=== PATIENT | female | born 1980 | race Caucasian/White ===

== ENCOUNTER 2019-11-20 11:21 | Observation (INO) | payer SELFPAY ==
[2019-11-20] VITALS (8 sets, daily range): BP systolic 85–138; BP diastolic 64–98; PULSE 63–81; RESP 12–20; TEMP 36.4–36.8; O2SAT 100; BMI 21.9
--- NOTE | 2019-11-20 12:23 | ECG_ITS ---
Measurements Intervals [place] Rate: 62 P: 74 TN: 173 QRS: 60 QRSD: 97 T: 53 QT: 438 QTc: 447 Interpretive Statements SINUS RHYTHM WITH SINUS ARRHYTHMIA BASELINE ARTIFACT- I, II, III, AVR, AVL, AVF, V1 NORMAL ECG Electronically Signed On 11-20-2019 14:46:58 CDT by Zbigniew Shah D.O.
--- NOTE | 2019-11-20 13:04 | ED.OVERDOSE ---
HPI - Overdose General Chief Complaint: Overdose Stated Complaint: took 20 zoloft Time Seen by Provider: 11/20/19 12:18 Source: patient and family Mode of arrival: ambulatory Limitations: no limitations History of Present Illness HPI Narrative: 39-year-old female Presents following what she says was a accidental ingestion of all of her remaining Zoloft tablets, numbering 20 100 mg tabs, this morning It is a unusual story involving having new daily pill dispensers which are supposed to hold her vitamin pills of which it sounds like she takes about 10 a day, and then somehow she grabbed the old pill meredith and took everything that was in it, which was a months worth of Zoloft She says, not a suicidal ingestion, and no other coingestions The Zoloft is prescribed by her PCP Dr. Pineda Intent: other Related Data Allergies Allergy/AdvReac Type Severity Reaction Status Date / Time erythromycin base Allergy Severe Nausea and Verified 08/30/14 03:44 Vomiting Penicillins Allergy Intermediate HIVES Verified 08/30/14 03:44 Sulfa (Sulfonamide Allergy Mild [place] Verified 08/30/14 03:44 Antibiotics) A CHILD Review of Systems Review of Systems: All systems reviewed & are unremarkable except as noted in HPI and below Constitutional: Constitutional: Denies fatigue, Denies fever(s) and Denies headache(s) Comments: drowsy, wt loss Eyes: Eyes: Denies change in vision ENT: Denies hoarseness, Denies nasal congestion and Denies sore throat Cardiovascular: Cardiovascular: Denies chest pain, Denies leg edema, Denies palpitations and Denies dyspnea Respiratory: Respiratory: Denies cough, Denies dyspnea and Denies wheezing Gastrointestinal: Gastrointestinal: Denies nausea and Denies vomiting Musculoskeletal: Musculoskeletal: Denies deformity, Denies joint swelling and Denies numbness Integumentary/Breasts: Skin/Breast: Denies rash, Denies unusual bruising and Denies wounds Neurologic: Denies focal weakness and Denies numbness Psychiatric: Psychiatric: Reports no additional psychiatric complaints and Reports abnormal sleep pattern Endocrine: Endocrine: Denies fatigue and Denies palpitations Hematologic/Lymphatic: Hematologic/Lymphatic: Denies easy bleeding and Denies easy bruising Allergic/Immunologic: Allergic/Immunologic: Denies wheezing Exam Const: General: healthy appearing, no acute distress and well developed Nutritional Appearance: well nourished Orientation/consciousness: patient oriented x3 (alert) and Other orientation findings (Alert) Limitations: no limitations HENMT: Head: normocephalic and atraumatic Ears: external ears normal General nose exam: no epistaxis Face and sinus: face symmetric Mouth: Yes lip normal and Yes moist mucous membranes Throat: other (No exudate, no erythema) Eyes: Conjunctivae: conjunctivae normal Sclera: sclerae normal EOM: EOMs intact bilaterally Neck: Neck: full ROM and supple Chest: Chest palpation & inspection: no tenderness Resp: Effort & Inspection: normal respiratory effort Auscultation: clear to auscultation bilaterally, no rales, no rhonchi, no wheezes and other (breath sounds equal) Cardio: Rate: regular rate Rhythm: regular rhythm Heart sounds: no gallops and no murmurs GI: Inspection: non-distended GI Palp: Yes Soft to palpation Auscultation: other (bowel sounds present) Skin: General skin exam: normal color and no rashes or lesions noted Neuro: General: patient oriented x3 (alert), moves all extremities and no focal motor deficits Extrem: General: normal to inspection, full ROM and no pedal edema Course Vital Signs Vital signs: Vital Signs Temperature 36.8 C 11/20/19 12:03 Pulse Rate 63 11/20/19 12:03 Respiratory Rate 18 11/20/19 12:03 Blood Pressure 131/79 11/20/19 12:03 Pulse Oximetry 100 11/20/19 12:03 Temperature 36.8 C 11/20/19 12:03 Pulse Rate 81 11/20/19 13:25 Respiratory Rate 20 11/20/19 13:25 Blood Pre
[2019-11-20 13:36] LABS: Basophils Absolute Auto 0.1 K/mm3 (0.0-0.1); Basophils Percent Auto 0.7 % (0.2-1.2); Eosinophils Percent Auto 0.3 % (0-4.4); Hematocrit 45.2 % (37.0-47.0); Hemoglobin 15.9 g/dL (12.0-15.0); Immature Granulocyte Absolute 0.05 K/mm3 (0.00-0.031); Immature Granulocyte Percent A 0.4 % (0-0.5); Lymphocytes Absolute Auto 1.13 K/mm3 (0.9-3.2); Lymphocytes Percent Auto 8.9 % (18.3-44.2); Mean Corpuscular HGB Conc 35.2 g/dl (32-36); Mean Corpuscular Hemoglobin 30.8 pg (26-34); Mean Corpuscular Volume 87.6 fl (80-100); Mean Platelet Volume 11.9 fl (7.4-10.4); Monocytes Absolute Auto 0.4 K/mm3 (0.1-0.6); Monocytes Percent Auto 2.8 % (2.6-8.5); Neutrophils Percent Auto 86.9 % (45.5-73.1); Platelet Count Result 262 k/mm3 (150-375); Red Blood Count 5.16 M/mm3 (4.2-5.4); Red Cell Distribution Width 12.4 % (11.5-14.5); White Blood Count 12.7 K/mm3 (4.5-10.0)
[2019-11-20 13:55] LABS: Acetaminophen < 10 ug/mL (10-30); Ethanol < 10 mg/dL (<10); Salicylate < 1.0 mg/dL (2-20)
[2019-11-20 13:56] LABS: Alanine Aminotransferase 15 U/L (4-35); Alkaline Phosphatase 115 U/L (38-126); Anion Gap 17 mmol/L (8-16); Aspartate Amino Transferase 26 U/L (14-36); Bilirubin,Total 1.1 mg/dL (0.2-1.3); Blood Urea Nitrogen 13 mg/dL (7-17); Calcium 10.2 mg/dL (8.4-10.2); Carbon Dioxide 21 mmol/L (22-30); Chloride 103 mmol/L (98-107); Estimated CRCL calculation 71 ml/min; Estimated Glomerular Filt Rate > 60; Glucose 167 mg/dL (65-105); Potassium 4.2 mmol/L (3.4-5.0); Sodium 141 mmol/L (137-145)
--- NOTE | 2019-11-20 14:03 | PC.NURSE ---
patient taking off blood pressure cuff and tele leads saying they are uncomfortable. attempted to explain the need to monitor but patient is refusing to leave on. patients is verbally aggressive with staff writing down names of staff and each interaction. became hostile when told that no pillows are avaiable at this time in er. patients states his assistant county attorney will hear about that
[2019-11-20 14:20] LABS: Add Urine Microscopic? YES; Appearance Urine Clear (Clear); Bacteria Urine Trace /hpf; Bilirubin Urine Negative (Negative); Blood Urine Negative (Negative); Color Urine Yellow (Yellow); Glucose Urine UA Negative (Negative); Ketones Urine 2+ mg/dL (Negative); Leukocyte Esterase Ur Negative LEU/UL (Negative); Mucus Urine Few /lpf; Nitrate Urine Negative (Negative); Protein Urine 1+ mg/dL (Negative); RBC Urine 0-2 /hpf (0-2); Specific Grav Ur 1.026 (1.001-1.035); Squamous Epithelial Cell Urine Few /hpf (Few); Urobilinogen Urine Negative mg/dL (<2.0); WBC Urine 0-3 /hpf
--- NOTE | 2019-11-20 14:25 | PC.NURSE ---
[id number] POISON CONTROL CONTACTED @[phone] SPOKE WITH ARNEL STATED WILL SEND INFO ON [facility] OD.
[2019-11-20 14:27] LABS: Amphetamine Screen Urine Negative (Negative); Barbiturate Screen Urine Negative (Negative); Benzodiazepines Screen Urine Negative (Negative); Cannabinoid Screen Urine Positive (Negative); Cocaine Screen Urine Negative (Negative); Methadone Screen Urine Negative (Negative); Opiate Screen Urine Negative (Negative); Phencyclidine Screen Urine Negative (Negative)
--- NOTE | 2019-11-20 15:00 | PM.IMHP ---
H&P: HPI History of Present Illness Date/Time: 11/20/19 15:00 Chief complaint: Antidepressant overdose Narrative: Анна Greenwood is a 39-year-old female with depression and anxiety who presented to the emergency department earlier today for evaluation after a reported unintentional ingestion of 20, 100 mg tablets of Zoloft this morning. She bought a new pill dispenser and was sorting her pills this morning (she takes 13 different vitamins each day in addition to Zoloft) when she accidently took the pills remaining in her old dispenser. After reportedly taking 20, 100 mg tablets of Zoloft, she induced vomiting and came to the ED for evaluation. At the time of my evaluation, she reports feeling anxious about the accidental overdose and being hospitalized. She also feels short of breath and nauseated but is noticeable anxious. She remains adamant that the overdose was accidental and not at all intentional. She also denies harmful and suicidal thoughts and denies previous history of suicide attempt. Review of Systems Review of Systems: Narrative: Twelve systems were reviewed with pertinent positives and negatives as per HPI. No fever, chills, or sweats. She denies recent cold and flu symptoms. No chest pain, pleuritic pain, or palpitations. She reports feeling a bit short of breath but is noticeably anxious. She also mentions some tingling in both of her hands. She continues to have nausea. Except as documented, all other systems were reviewed and are negative. 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 Surgical History Surgical History (Updated 11/20/19 @ 17:14 by Cleo Harvey PA-C) History of bilateral breast reduction surgery History of partial thyroidectomy (~10/10/11) Left thyroidectomy and isthmusectomy for Hurtle cell adenoma. Family History Family History Mother Bipolar 1 disorder Schizophrenia Epilepsia Social History Social History (Updated 11/20/19 @ 17:13 by Cleo Harvey PA-C) Social History: Surrogate decision maker: Zion Greenwood, spouse. Code status: Full code. Smoking status: Never smoker Alcohol intake: never Substance use: current Substance use type: marijuana Additional living arrangements comments: Resides in [place] with her . She has no children. Additional occupation/education comments: Self-employed. Spiritual care concerns: No Meds Home Medications and Allergies Allergies Allergy/AdvReac Type Severity Reaction Status Date / Time erythromycin base Allergy Severe Nausea and Verified 08/30/14 03:44 Vomiting Penicillins Allergy Intermediate HIVES Verified 08/30/14 03:44 Sulfa (Sulfonamide Allergy Mild [place] Verified 08/30/14 03:44 Antibiotics) A CHILD Vital Signs Vital Signs - 24 hr 11/20/19 12:03 11/20/19 12:15 11/20/19 13:25 Temperature 98.2 F Pulse Rate 63 81 Respiratory Rate 18 18 20 Blood Pressure 131/79 138/91 H Pulse Oximetry 100 100 Exam Narrative: Exam Narrative: General: Well-developed female supine in bed. Weight: 52.8 kg. BMI: 22.0. HEENT: Normocephalic, atraumatic. PERRL, EOMI. Sclerae anicteric. Oral mucosa tacky. Lips are dry. Oropharynx clear. Edentulous in the upper jaw. Neck: Supple. Thyroidectomy scar noted. Respiratory: Breathing is shallow and rapid when she is anxious. Lungs are clear to auscultation bilaterally. Cardiovascular: Regular rate and rhythm with S1-S2. No murmur, rub, or gallop. Gastrointestinal: Abdomen is soft, nontender, and nondistended with positive bowel sounds. Skin: Warm and dry. No rash or lesions on limited exam. Extremities: No cyanosis, clubbing, or edema. Radial and pedal pulses intact. Neurological: Alert. Cranial nerves 2-12 are jaylon
[2019-11-20] MEDS: LACTATED RINGERS 1,000 ML 999 ML IV CONT (15:07)
--- NOTE | 2019-11-20 16:00 | PC.NURSE ---
This patient, Анна Greenwood, was admitted to IMU status, and placed in Intensive Care Unit-11. Patient/family oriented to hospital policies and general routines including ID bracelet, bed and alarms, visiting hours, pain management, procedures, bathroom and other care routines, personal items, smoking policy, room service/diet, and visiting hours. Valuables list has been completed. Information on how to activate the Rapid Response Team has been discussed. Patient/Family are encouraged to report perceived risks to care and to ask questions if they do not understand what they are told or what they should do.
[2019-11-20] MEDS: PANTOPRAZOLE 40 MG TABLET PO ×2 (16:44→21:36)
[2019-11-20] MEDS: hydrOXYzine pamoate 25 MG CAPSULE PO ×2 (16:44→21:36)
[2019-11-20] MEDS: LACTATED RINGERS 1,000 ML 125 ML IV CONT (18:29)
--- NOTE | 2019-11-20 22:50 | PC.NURSE ---
Spoke with Radha from [place] poison control for update at 0751 11/20/19. No further recommendations other than monitor for telemetry abnormalities. They will check back in the am.
[2019-11-21] VITALS: BP 120/66; PULSE 73; PULSE 77; RESP 25; TEMP 36.8; O2SAT 98
[2019-11-21 02:00] VITALS: PULSE 86
[2019-11-21] MEDS: LACTATED RINGERS 1,000 ML 125 ML IV CONT (02:32)
[2019-11-21 04:00] VITALS: BP 139/86; PULSE 80; PULSE 93; RESP 23; TEMP 36.6; O2SAT 99
[2019-11-21] MEDS: hydrOXYzine pamoate 25 MG CAPSULE PO (04:54)
[2019-11-21 05:09] LABS: Basophils Percent Auto 0.2 % (0.2-1.2); Hematocrit 39.7 % (37.0-47.0); Hemoglobin 14.1 g/dL (12.0-15.0); Immature Granulocyte Absolute 0.06 K/mm3 (0.00-0.031); Immature Granulocyte Percent A 0.5 % (0-0.5); Lymphocytes Absolute Auto 1.33 K/mm3 (0.9-3.2); Lymphocytes Percent Auto 11.3 % (18.3-44.2); Mean Corpuscular HGB Conc 35.5 g/dl (32-36); Mean Corpuscular Hemoglobin 30.5 pg (26-34); Mean Corpuscular Volume 85.9 fl (80-100); Mean Platelet Volume 11.4 fl (7.4-10.4); Monocytes Absolute Auto 0.6 K/mm3 (0.1-0.6); Monocytes Percent Auto 4.9 % (2.6-8.5); Neutrophils Absolute Auto 9.8 K/mm3 (1.3-6.7); Neutrophils Percent Auto 83.1 % (45.5-73.1); Platelet Count Result 270 k/mm3 (150-375); Red Blood Count 4.62 M/mm3 (4.2-5.4); Red Cell Distribution Width 12.3 % (11.5-14.5); White Blood Count 11.7 K/mm3 (4.5-10.0)
[2019-11-21 05:30] LABS: Alanine Aminotransferase 22 U/L (4-35); Albumin Level 4.6 g/dL (3.5-5.1); Alkaline Phosphatase 95 U/L (38-126); Anion Gap 14 mmol/L (8-16); Aspartate Amino Transferase 43 U/L (14-36); Bilirubin,Total 1.2 mg/dL (0.2-1.3); Blood Urea Nitrogen 11 mg/dL (7-17); Calcium 9.4 mg/dL (8.4-10.2); Carbon Dioxide 18 mmol/L (22-30); Chloride 110 mmol/L (98-107); Estimated CRCL calculation 71 ml/min; Estimated Glomerular Filt Rate > 60; Glucose 119 mg/dL (65-105); Magnesium 1.5 mg/dL (1.6-2.3); Potassium 3.5 mmol/L (3.4-5.0); Sodium 142 mmol/L (137-145)
[2019-11-21 05:55] VITALS: PULSE 86
[2019-11-21 08:00] VITALS: BP 120/72; PULSE 84; PULSE 96; RESP 13; TEMP 37; O2SAT 98
[2019-11-21] MEDS: PANTOPRAZOLE 40 MG TABLET PO (09:25)
--- NOTE | 2019-11-21 09:53 | PC.NURSE ---
CLEARED BY POISON CONTROL AT 0950 AM.
[2019-11-21 10:00] VITALS: PULSE 79
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
--- NOTE | 2019-11-21 13:21 | PC.NURSE ---
PATIENT HAS BEEN EVALUATED BY CRISIS AND DR. JACKSON. WAITING ON DISCHARGE ORDERS.
== END 2019-11-21 14:00 | disposition home or self-care (01) ==
LOC: ANHED 14:35 → ANHICU 11-21 13:44
PROVIDERS: Physician Assistant; Admitting Provider Family Medicine; Emergency Provider Emergency Medicine; Visit Provider Internal Medicine
DX: T43.221A Poisoning by selective serotonin reuptake inhibitors, accidental (unintentional), initial encounter (principal); E86.0 Dehydration; F41.8 Other specified anxiety disorders
CPT/HCPCS: 36415; 80053; 80307; 81001; 81025; 83735; 84443; 85025; 93005; 96360; 96361; 99285; A9270; G0378; G0379; J7120

== ENCOUNTER 2021-03-25 15:03 | Outpatient (CLI) | payer BC, SELFPAY ==
--- NOTE | ~2021-03-25 | US_ITS ---
EXAMINATION: US thyroid DATE: 03/25/2021 15:27 INDICATION: Nontoxic single thyroid nodule TECHNIQUE: Multiple ultrasound images of the thyroid were obtained. COMPARISON: 09/19/2011 FINDINGS: The right thyroid lobe measures 5.5 x 2.2 x 1.8 cm. Status post left thyroidectomy with no abnormal n odules or residual thyroid tissue at the left thyroid fossa. 3.0 x 2.5 x 1.4 cm wider than tall mixed solid and cystic nodule with smooth margins and without echogenic foci in the right thyroid lobe whi ch contains a couple 1 cm isoechoic solid nodular components (TI-RADS 2, not suspicious, no FNA recom mended) unchanged likely benign 2 mm shadowing coarse calcification. IMPRESSION: 1. 3.0 cm TI RADS 2 right thyroid nodule which does not meet criteria for either biopsy or follow-up. 2. Status post left thyroidectomy. Reviewed, dictated and finalized at location A. [employer] IMPRESSION: 1. 3.0 cm TI RADS 2 right thyroid nodule which does not meet criteria for eithe r biopsy or follow-up. 2. Status post left thyroidectomy.
== END 2021-03-25 15:04 | disposition home or self-care (01) ==
LOC: ANHIMG 15:07
PROVIDERS: PCP Family Medicine; Visit Provider Family Medicine
DX: E04.1 Nontoxic single thyroid nodule (principal); E89.0 Postprocedural hypothyroidism
CPT/HCPCS: 76536

== ENCOUNTER 2021-11-01 09:18 | Outpatient (CLI) | payer OTHER, SELFPAY ==
--- NOTE | ~2021-11-01 | MM_ITS ---
EXAMINATION: MM screening brandy BI w jose HISTORY: Screening mammogram TECHNIQUE: Craniocaudal and mediolateral oblique 3-D tomosynthesis images were obtained and synthetic 2-D images were generated. CAD analysis was submitted and interpreted. COMPARISON: No prior mammogram is available for comparison at this institution. BREAST PARENCHYMAL COMPOSITION: The breasts are extremely dense, which lowers the sensitivity of mamm ography. FINDINGS: Bilateral breast masses. Bilateral diagnostic mammography and bilateral breast ultrasound examination are recommended. IMPRESSION: 1. Bilateral breast masses 2. Bilateral diagnostic mammography and breast ultrasound examination are recommended BI-RADS Category 0: Incomplete: Needs additional imaging evaluation. Reviewed, dictated and finalized at location A. IMPRESSION: 1. Bilateral breast masses 2. Bilateral diagnostic mammography and breast ultrasound examination are recom mended BI-RADS Category 0: Incomplete: Needs additional imaging evaluation.
== END 2021-11-01 09:19 | disposition home or self-care (01) ==
PROVIDERS: PCP Nurse Practitioner Adult Health; Visit Provider Nurse Practitioner Adult Health
DX: Z12.31 Encounter for screening mammogram for malignant neoplasm of breast (principal); R92.8 Other abnormal and inconclusive findings on diagnostic imaging of breast
CPT/HCPCS: 77063; 77067

== ENCOUNTER 2021-11-15 13:44 | Outpatient (CLI) | payer OTHER, SELFPAY ==
--- NOTE | ~2021-11-15 | MMUS_ITS ---
EXAMINATION: MM diagnostic brandy BI w jose, US breast BI complete HISTORY: Follow-up bilateral breast masses TECHNIQUE: Additional 3-D tomosynthesis images of the breasts were performed and synthetic 2-D images were generated. CAD analysis was submitted and interpreted. High resolution complete bilateral breas t ultrasound was performed. COMPARISON: 11/01/2021 BREAST PARENCHYMAL COMPOSITION: The breasts are extremely dense, which lowers the sensitivity of mamm ography FINDINGS: MAMMOGRAPHIC FINDINGS: Bilateral breast asymmetries are less apparent with spot compression and mediolateral views. There ar e no discrete masses, calcifications or architectural distortion. ULTRASOUND: Complete bilateral US of all 4 quadrants of the breasts and retroareolar region was reviewed. There a re multiple cysts of both breasts. No suspicious masses in either breast to suggest malignancy. There are normal-appearing left axillary lymph nodes IMPRESSION: 1. No evidence for malignancy in either breast. 2. Routine yearly screening mammogram and regular clinical breast examination are recommended. BI-RADS Category 2: Benign finding(s). Reviewed, dictated and finalized at location A. IMPRESSION: 1. No evidence for malignancy in either breast. 2. Routine yearly screening mammogram and regular clinical breast examination a re recommended. BI-RADS Category 2: Benign finding(s).
== END 2021-11-15 13:45 | disposition home or self-care (01) ==
PROVIDERS: PCP Nurse Practitioner Adult Health; Visit Provider Family Medicine
DX: R92.8 Other abnormal and inconclusive findings on diagnostic imaging of breast (principal)
CPT/HCPCS: 76641; 77062; 77066; G0279

== ENCOUNTER 2022-02-24 13:31 | Outpatient (CLI) | payer OTHER, SELFPAY ==
--- NOTE | ~2022-02-24 | US_ITS ---
EXAMINATION: US thyroid DATE: 02/24/2022 14:15 INDICATION: Nontoxic goiter. TECHNIQUE: Multiple ultrasound images of the thyroid were obtained. COMPARISON: Ultrasound 03/25/2021, 09/19/11 FINDINGS: The right thyroid lobe measures 5.2 x 2.8 x 2.1 cm. There are changes of left hemithyroidectomy. In t he right thyroid lobe, there is a 3.8 cm mixed cystic and solid nodule with 11 mm isoechoic solid com ponent. The nodule is wider than tall with smooth margin without echogenic foci (TI-RADS TR2). IMPRESSION: 1. Right thyroid nodule, not suspicious. No follow-up is needed. 2. Left hemithyroidectomy. Reviewed, dictated and finalized at location A. BAGGER
== END 2022-02-24 13:32 | disposition home or self-care (01) ==
PROVIDERS: PCP Nurse Practitioner Adult Health; Visit Provider Nurse Practitioner Adult Health
DX: E04.9 Nontoxic goiter, unspecified (principal); R13.10 Dysphagia, unspecified; Z85.850 Personal history of malignant neoplasm of thyroid; E89.0 Postprocedural hypothyroidism
CPT/HCPCS: 76536

== ENCOUNTER 2023-07-25 14:29 | Outpatient (CLI) | payer OTHER, SELFPAY ==
--- NOTE | ~2023-07-25 | MM_ITS ---
EXAMINATION: MM screening brandy BI w jose HISTORY: Screening TECHNIQUE: Craniocaudal and mediolateral oblique 3-D tomosynthesis images were obtained and synthetic 2-D images were generated. CAD analysis was submitted and interpreted. COMPARISON: Comparison to multiple prior studies sequentially, with oldest reviewed study dated 11/01. BREAST PARENCHYMAL COMPOSITION: Dense: The breasts are extremely dense, which lowers the sensitivity of mammography. FINDINGS: There are changes in both breasts, consistent with interval breast reduction surgery There is no evidence of suspicious mass, calcification, or architectural distortion to suggest malignancy i n either breast. There has been no suspicious interval change. IMPRESSION: 1. No mammographic evidence of malignancy. 2. Recommend routine screening mammography in one year. BI-RADS Category 1: Negative Reviewed, dictated and finalized at location B.
== END 2023-07-25 14:30 | disposition home or self-care (01) ==
PROVIDERS: PCP Nurse Practitioner Adult Health; Visit Provider Emergency Medicine
DX: Z12.31 Encounter for screening mammogram for malignant neoplasm of breast (principal)
CPT/HCPCS: 77063; 77067